=== PATIENT | female | born 1975 | race Asian ===

== ENCOUNTER 2016-11-07 09:50 | Inpatient (IN) | payer SELFPAY ==
[~2016-11-07] VITALS: Ht 150 cm; Wt 82.0 kg
[2016-11-07 10:30] LABS: BASOPHILS % (AUTO) 0.3 % (0.0-2.0); EOSINOPHILS # (AUTO) 0.1 K/uL (0.0-0.4); EOSINOPHILS % (AUTO) 1.3 % (0.0-4.0); HEMATOCRIT 38.9 % (36-48); HEMOGLOBIN 13.1 g/dL (12.0-16.0); LYMPHOCYTES # (AUTO) 1.5 K/uL (1.0-5.5); LYMPHOCYTES % (AUTO) 19.5 % (20.5-51.5); MEAN CORPUSCULAR HEMOGLOBIN 30 pg (27-31); MEAN CORPUSCULAR HGB CONC 34 % (32-36); MEAN CORPUSCULAR VOLUME 90 fL (79.0-98.0); MONOCYTES # (AUTO) 0.4 K/uL (0.0-1.0); MONOCYTES % (AUTO) 5.1 % (1.7-9.3); NEUTROPHILS # (AUTO) 5.6 K/uL (1.8-7.7); NEUTROPHILS % (AUTO) 73.8 % (40.0-70.0); PLATELET COUNT (AUTO) 136 K/uL (130-430); RED BLOOD CELL COUNT(AUTO) 4.34 MIL/uL (4.2-6.2); RED CELL DISTRIBUTION WIDTH 16.1 % (9.0-15.0); WHITE BLOOD COUNT (AUTO) 7.6 K/uL (4.8-10.8)
[2016-11-07 10:36] LABS: BILIRUBIN,URINE NEGATIVE (NEGATIVE); BLOOD, URINE NEGATIVE (NEGATIVE); CLARITY/URINE CLEAR (CLEAR); COLOR,URINE YELLOW (YELLOW); GLUCOSE,URINE NEGATIVE (NEGATIVE); KETONES,URINE NEGATIVE (NEGATIVE); LEUKOCYTE ESTERASE ,URINE 3+ (NEGATIVE); NITRITE, URINE NEGATIVE (NEGATIVE); PROTEIN URINE NEGATIVE (NEGATIVE); UROBILINOGEN,URINE 0.2 (0.2-1.0)
[2016-11-07] MEDS ORDERED: ONDANSETRON HCL 4 MG/2 ML VIAL IVP ONE (11:00)
[2016-11-07] MEDS ORDERED: OXYTOCIN 10 UNIT/ML VIAL IV ONE (11:00)
[2016-11-07] MEDS ORDERED: NS IRRIG SOLN 1000 ML IR ONE (11:00)
[2016-11-07] MEDS ORDERED: ePHEDrine sulfate 50 MG/ML VIAL IV ONE (11:00)
[2016-11-07] MEDS ORDERED: LR 1,000 ML IV.SOLN IV ONE (11:00)
[2016-11-07 11:01] LABS: BACTERIA,URINE FEW /HPF (None Seen); WBC,URINE 20-50 /HPF (0-3)
[2016-11-07] MEDS ORDERED: OXYTOCIN/NORMAL SALINE 1,000 ML IV ONE ×2 (11:46→13:39)
[2016-11-07] MEDS ORDERED: CEFAZOLIN 2 GM IVPB PREMIX 50 ML IV ONE ×2 (11:55→12:01)
[2016-11-07] MEDS ORDERED: ANUSOL 1 EA SUPP.RECT (PREPARATION H) RC PRN (12:00)
[2016-11-07] MEDS ORDERED: LANOLIN 7 GM OINT. TP PRN (12:00)
[2016-11-07] MEDS ORDERED: MEASLES,MUMPS&RUBELLA VACC/PF 12500 UNIT/0.5 ML VIAL SUBQ PRN (12:00)
[2016-11-07] MEDS ORDERED: OXYCODONE/ACETAMINOPHEN 5-325 TABLET PO PRN ×2 (12:00)
[2016-11-07] MEDS ORDERED: HYDROcodone/ACETAMIN 5-325 MG TAB (NORCO/ VICODIN) PO PRN (12:00)
[2016-11-07] MEDS ORDERED: MORPHINE SULFATE 10MG/10ML PF AMP EP ONE (12:29)
[2016-11-07] MEDS ORDERED: LR 1,000 ML IV SCH (12:44)
[2016-11-07] MEDS ORDERED: NALOXONE HCL 1 MG in NACL 0.9% 1,000 ML IV PRN ×4 (12:44)
[2016-11-07] MEDS ORDERED: HYDROmorphone 2 MG/ML VIAL IVP PRN ×2 (12:45)
[2016-11-07] MEDS ORDERED: NALOXONE HCL 0.4 MG/ML AMP (NARCAN) IVP PRN ×3 (12:45)
[2016-11-07] MEDS ORDERED: DIPHENHYDRAMINE INJ 50 MG/ML VIAL IVP PRN (12:45)
[2016-11-07] MEDS ORDERED: MEPERIDINE HCL/PF 25 MG/ML DISP.SYRIN IVP PRN ×2 (12:45)
[2016-11-07] MEDS ORDERED: HYDROmorphone 1 MG INJ. 1 MG/ML AMPUL IVP PRN (12:45)
[2016-11-07] MEDS ORDERED: DIPHENHYDRAMINE HCL 50 MG CAPSULE PO PRN (12:45)
[2016-11-07] MEDS ORDERED: ONDANSETRON HCL 4 MG/2 ML VIAL IVP PRN (12:45)
[2016-11-07 17:20] VITALS: BP_SYST 101
[2016-11-07] MEDS: CEFAZOLIN 1 GM IVPB PREMIX 50 ML IV SCH (18:15)
[2016-11-07] MEDS ORDERED: TEMAZEPAM 15 MG CAPSULE PO PRN (21:00)
[2016-11-08] MEDS: CEFAZOLIN 1 GM IVPB PREMIX 50 ML IV SCH ×2 (00:09→05:05)
[2016-11-08] MEDS: IBUPROFEN 600 MG TABLET PO SCH ×4 (05:06→23:19)
[2016-11-08 09:48] LABS: BASOPHILS % (AUTO) 0.4 % (0.0-2.0); EOSINOPHILS # (AUTO) 0.1 K/uL (0.0-0.4); EOSINOPHILS % (AUTO) 1.4 % (0.0-4.0); HEMATOCRIT 33.9 % (36-48); HEMOGLOBIN 11.6 g/dL (12.0-16.0); LYMPHOCYTES # (AUTO) 1.3 K/uL (1.0-5.5); LYMPHOCYTES % (AUTO) 16.3 % (20.5-51.5); MEAN CORPUSCULAR HEMOGLOBIN 31 pg (27-31); MEAN CORPUSCULAR HGB CONC 34 % (32-36); MEAN CORPUSCULAR VOLUME 90 fL (79.0-98.0); MONOCYTES # (AUTO) 0.3 K/uL (0.0-1.0); MONOCYTES % (AUTO) 3.7 % (1.7-9.3); NEUTROPHILS % (AUTO) 78.2 % (40.0-70.0); RED BLOOD CELL COUNT(AUTO) 3.77 MIL/uL (4.2-6.2); RED CELL DISTRIBUTION WIDTH 16.3 % (9.0-15.0); WHITE BLOOD COUNT (AUTO) 7.7 K/uL (4.8-10.8)
[2016-11-08 09:49] LABS: PLATELET COUNT (AUTO) 115 K/uL (130-430)
[2016-11-08] MEDS: DOCUSATE SODIUM 100 MG CAPSULE PO PRN (11:56)
[2016-11-08] MEDS: SIMETHICONE 80 MG TAB.CHEW PO PRN (11:56)
[2016-11-08] MEDS ORDERED: LR 1,000 ML IV SCH (13:00)
[2016-11-09] MEDS: IBUPROFEN 600 MG TABLET PO SCH ×2 (06:00→12:12)
[2016-11-09] MEDS: DOCUSATE SODIUM 100 MG CAPSULE PO PRN (09:05)
[2016-11-09] MEDS: SIMETHICONE 80 MG TAB.CHEW PO PRN (09:06)
== END 2016-11-09 12:30 | disposition home or self-care (01) | DRG 766 ==
LOC: SPU 09:50
PROVIDERS: ADMIT Obstetrics & Gynecology; ATTEND Obstetrics & Gynecology
PROC: 10D00Z1 Extraction of Products of Conception, Low, Open Approach (ICD-10-PCS; principal; 2016-11-07 12:00)
DX: O34.211 Maternal care for low transverse scar from previous cesarean delivery (principal); O09.523 Supervision of elderly multigravida, third trimester; Z37.0 Single live birth; Z3A.39 39 weeks gestation of pregnancy
CPT/HCPCS: 36415; 81000-TC; 85025; 86886; 86900; 86901; 94760; J0690; J2274; J2310; J2405; J2590; J7030; J7120